=== PATIENT | male | born 1955 | race Caucasian/White ===

== ENCOUNTER → 2018-01-05 20:20 | Outpatient (CLI) | payer BC, SELFPAY ==
[2018-01-14 20:07] LABS: Ca Oxalate, Monohydrate 95 % (.)
== END ==
PROVIDERS: Family Provider Family Medicine; PCP Family Medicine; Referring Provider Urology; Visit Provider Urology
DX: N20.0 Calculus of kidney (principal)
CPT/HCPCS: 82360

== ENCOUNTER 2022-01-01 09:31 | Observation (INO) | payer BC, SELFPAY ==
[2022-01-01 09:32] VITALS: BP 167/105; PULSE 81; RESP 18; TEMP 36.6; O2SAT 98; BMI 33.6
--- NOTE | 2022-01-01 09:49 | EDS_ITS ---
HPI History of Present Illness Chief Complaint: Flank Pain Informant: patient Onset/Context/Timing Onset: Days Context: Gradual Onset Timing: Waxes and wanes Narrative Narrative: Patient presents with left flank pain and a known 8 mm stone. Patient developed flank pain 6 days ago. He was seen in the emergency room on Friday and diagnosed with an 8 mm left-sided stone. He was seen by Dr. Guillen in the office yesterday and was pain-free at that time. Surgery was scheduled for next week. Dr. Guillen received a call this morning the patient had significant pain with nausea overnight. He asked the patient to come in for evaluation and admission for further treatment. [facility] Medical History (Updated 01/01/22 @ 11:[address] Isidra Galicia MD) BPH (benign prostatic hyperplasia) DM type 2 (diabetes mellitus, type 2) Former smoker Hypercholesteremia Hypertension Kidney stones Sleep apnea Home Medications allopurinol 300 mg tablet 300 mg PO DAILY 01/01/22 [History Last Taken Unknown] glimepiride 4 mg tablet 4 mg PO BID 01/01/22 [History Last Taken Unknown] lisinopril 20 mg-hydrochlorothiazide 12.5 mg tablet 1 tab PO DAILY 01/01/22 [History Last Taken Unknown] metformin 1,000 mg tablet 1,000 mg PO BID 01/01/22 [History Last Taken Unknown] simvastatin 40 mg tablet 40 mg PO DAILY 01/01/22 [History Last Taken Unknown] tamsulosin 0.4 mg capsule (Flomax) 0.4 mg PO DAILY 01/01/22 [History Last Taken Unknown] Allergy/AdvReac Type Severity Reaction Status Date / Time No Known Allergies Allergy Verified 01/01/22 09:31 Surgical History (Updated 01/01/22 @ 09:52 by Kenisha Clemons) H/O bilateral hip replacements H/O hernia repair History of bilateral knee replacement History of cholecystectomy History of facial surgery Social History Smoking Status: Former smoker ROS ROS ED Constitutional Constitutional ED: Denies chills or fever(s) Eyes Eyes: Denies change in vision or discharge from eye(s) ENT ENT ED: Denies discharge from eye(s), rhinorrhea or sore throat Cardiovascular Cardiovascular: Denies chest pain or palpitations Respiratory/Chest Respiratory/Chest: Denies cough or dyspnea Gastrointestinal Gastrointestinal: Reports abdominal pain and nausea; Denies diarrhea or vomiting Genitourinary Genitourinary ED: Denies difficulty urinating or dysuria Musculoskeletal Musculoskeletal: Reports back pain; Denies extremity pain Integumentary Denies Abrasions or rash Neurologic Neurologic: Denies headache(s) or weakness Allergic/Immunologic Allergic/Immunologic ED: Denies lip swelling or urticaria EXAM Physical Exam Const Vital Signs: 01/01/22 09:32 01/01/22 09:48 Temperature 97.9 F Temperature Source Temporal Pulse Rate 81 Respiratory Rate 18 Respiratory Effort Normal Non-Labored Respiratory Pattern Normal Blood Pressure 167/105 H Blood Pressure Mean 125 Pulse Ox 98 Oxygen Delivery Method Room Air Positive well nourished and well developed General Appearance ED: well developed HEENT Reports normocephalic and head/scalp atraumatic Eyes PERRL and EOMs intact bilaterally Neck supple Chest Wall inspection of chest normal and palpation of chest normal Resp normal respiratory effort and clear to auscultation bilaterally Cardio regular rate and regular rhythm GI GI Narrative: Abdomen is distended but soft. No reproducible tenderness. Palpation: soft Back/Spine General Back: CVA tenderness left Extremity normal to inspection Neuro oriented x3 and no sensory deficits noted Sensorium / Orientation: alert Motor Exam: strength 5/5 throughout Psych mental status grossly normal Skin no rashes or lesions noted MDM MDM MDM Narrative Medical decision making narrative: Patient was given morphine, Toradol, Zofran, IV fluids. Lab work and urinalysis obtained. I was able to review his CT scan and Clinisync as he was seen at [facility]. There is an 8 mm calculus at the distal left ureter. Lab Data Attestation: I reviewed the patient's lab results. Labs: Laboratory Results - last 24 hr 01/01/22 01/01/22 01/01/22 09:59 09:59 10:55 WBC 11.7 H RBC 4.47 L Hgb 13.8 Hct 40.6 MCV 90.8 MCH 30.9 MCHC 34.0 RDW Std Deviation 41.2 RDW Coeff of Leah 12.4 Plt Count 252 MPV 8.9 Immature Gran % (Auto) 0.400 Neut % (Auto) 69.9 Lymph % (Auto) 19.6 [place] % (Auto) 6.9 Eos % (Auto) 2.9 Baso % (Auto) 0.3 Absolute Neuts (auto) 8.2 H Absolute Lymphs (auto) 2.28 Nucleated RBC % 0 Sodium 135 L Potassium 4.4 Chloride 102 Carbon Dioxide 27.0 Anion Gap 6 BUN 20 H Creatinine 1.40 H Estim Creat Clear Calc 57.74 Est GFR (MDRD) Af Amer 65 Est GFR (MDRD) Non-Af 54 L BUN/Creatinine Ratio 14.3 Glucose 189 H Calcium 9.3 Urine Color Yellow Urine Clarity Clear Urine pH 6.0 Ur Specific [place] 1.015 Urine Protein Negative Urine Glucose (UA) Normal Urine Ketones Negative Urine Occult Blood 25 H Urine Nitrite Negative Urine Bilirubin Negative Urine Urobilinogen 1 H Ur Leukocyte Esterase 25 H Urine RBC 0-5 SEEN Urine WBC 5-10 SEEN Ur Squamous Epith Cells 0-5 SEEN Ur Transition Epith Cell 5-10 SEEN Urine Bacteria 1+ Urine Mucus 0 SEEN Treatment and Re-Evaluation Narrative: Patient's pain is improved. Lab work reveals mild elevation of white count of 11.7. Creatinine today is 1.4. This is compared to a creatinine of 1.31 on the . Urinalysis shows 1+ bacteria with epithelial cells. I spoke with Dr. Guillen. Patient will be admitted for further treatment. Discharge Plan Triage Chief Complaint: Flank Pain ED Provider: Isidra Galicia Dx/Rx/DC Orders Clinical Impression: Kidney stone Prescriptions: No Action lisinopril-hydrochlorothiazide 20-12.5 mg Tablet 1 tab PO DAILY simvastatin 40 mg Tablet 40 mg PO DAILY tamsulosin [Flomax] 0.4 mg Capsule 0.4 mg PO DAILY metformin 1,000 mg Tablet 1,000 mg PO BID glimepiride 4 mg Tablet 4 mg PO BID allopurinol 300 mg Tablet 300 mg PO DAILY Primary Care Provider: Wei Cabello Referrals: Bladimir Ayala MD [Non-Staff] - Disposition Disposition: Acute Care Hospital [facility]
[2022-01-01] MEDS: Ketorolac 15 MG/ML Vial IV ×3 (09:55→19:57)
[2022-01-01] MEDS: Ondansetron 4 MG/2 ML Vial IV (09:55)
[2022-01-01] MEDS: 0.9% Normal Saline 1,000 ML 150 ML IV ×3 (09:56→19:57)
[2022-01-01] MEDS: Morphine 4 MG/ML Syringe IV (09:57)
[2022-01-01 10:21] LABS: Absolute Lymphocyte Count 2.28 X10^3/uL (0.83-4.51); Absolute Neutrophil Count 8.2 X10^3/uL (2.0-7.7); Basophil# 0.03 X10^3/uL; Basophil% 0.3 % (0-1); Eosinophil# 0.34 X10^3/uL; Eosinophils% 2.9 % (0-5); Hematocrit 40.6 % (40-54); Hemoglobin 13.8 g/dL (13.0-16.5); Lymphocyte # 2.28 X10^3/ul (0.83-4.51); Lymphocyte % 19.6 % (19-41); Mean Corpuscular Hgb 30.9 pg (27.0-32.0); Mean Corpuscular Volume 90.8 fL (80-94); Mean Platelet Vol. 8.9 fl (6.2-12.0); Monocyte# 0.81 X10^3/uL; Monocyte% 6.9 % (0-10); NRBC Flagged by Analyzer 0 % (0-5); Neutrophil # 8.15 X10^3/uL (2.7-7.7); Neutrophil % 69.9 % (47-70); Platelet Count 252 K/mm3 (150-450); RBC Distribution Width CV 12.4 % (11.6-14.6); RBC Distribution Width SD 41.2 fl (35.1-43.9); Red Blood Count 4.47 M/mm3 (4.6-6.2); White Blood Count 11.7 K/mm3 (4.4-11.0)
[2022-01-01 10:35] LABS: Anion Gap 6 (5-15); BUN 20 mg/dL (7-18); BUN/Creat Ratio 14.3 RATIO (10-20); Calcium,Total 9.3 mg/dL (8.5-10.1); Chloride 102 mmol/L (98-107); EST Glomerular Filtration Rate 54 mL/min (>60); Est Glom Filt Rate - Afr Amer 65 mL/min (>60); Estimated Creatinine Clearance 57.74 ml/min; Glucose 189 mg/dL (74-106); Potassium 4.4 mmol/L (3.5-5.1); Sodium Level 135 mmol/L (136-145)
[2022-01-01 11:01] LABS: Mucous, Urine 0 SEEN /hpf (<or=2+)
[2022-01-01 11:02] LABS: Color, Urine Yellow (Yellow); Glucose, Dipstick Normal (Normal); Ketone-Dipstick Negative (Negative); Leukocyte Esterase-Dipstick 25 /ul (Negative); Nitrite-Dipstick Negative (Negative); Occult Blood-Urine 25 /ul (Negative); Protein-Dipstick Negative (Negative); Specific Gravity, Urine 1.015 (1.002-1.030); Urine Bilirubin Dipstick Negative (Negative); Urine Clarity Clear (Clear); Urine Urobilinogen 1 mg/dl (Normal)
[2022-01-01 11:13] LABS: Bacteria 1+ /hpf (None Seen); Red Blood Cells-Urine 0-5 SEEN /hpf (0-5); Squamous Epithelial Cells - UA 0-5 SEEN /hpf (0-5); Transitional Epithelial - Ur 5-10 SEEN /hpf (0-5); White Blood Cells 5-10 SEEN /hpf (0-5)
--- NOTE | 2022-01-01 11:36 | NURSING ---
MED SURG OBS LEENA KIDNEY STONE
[2022-01-01 11:37] VITALS: BP 121/91; PULSE 69; RESP 18; TEMP 36.7; O2SAT 97
--- NOTE | 2022-01-01 11:52 | NURSING ---
Floor to call for orders from Dr. Morse on admission.
--- NOTE | 2022-01-01 12:41 | HP.PCM_ITS ---
HPI - General General Date of Admission: 01/01/22 HPI Narrative ISMA CAGLE, is a 66 M who presents to the hospital with left severe flank pain he had severe pain last night called the office and was wondering what to do because he is having uncontrolled pain so recommended go to the emergency room for pain control we can bring him into the hospital for pain control and probably a stent placement tomorrow in surgery. [facility] Medical History BPH (benign prostatic hyperplasia) DM type 2 (diabetes mellitus, type 2) Former smoker Hypercholesteremia Hypertension Kidney stones Sleep apnea Home Medications allopurinol 300 mg tablet 300 mg PO DAILY 01/01/22 [History Last Taken Unknown] glimepiride 4 mg tablet 4 mg PO BID 01/01/22 [History Last Taken Unknown] lisinopril 20 mg-hydrochlorothiazide 12.5 mg tablet 1 tab PO DAILY 01/01/22 [History Last Taken Unknown] metformin 1,000 mg tablet 1,000 mg PO BID 01/01/22 [History Last Taken Unknown] simvastatin 40 mg tablet 40 mg PO DAILY 01/01/22 [History Last Taken Unknown] tamsulosin 0.4 mg capsule (Flomax) 0.4 mg PO DAILY 01/01/22 [History Last Taken Unknown] Allergy/AdvReac Type Severity Reaction Status Date / Time No Known Allergies Allergy Verified 01/01/22 09:31 Surgical History H/O bilateral hip replacements H/O hernia repair History of bilateral knee replacement History of cholecystectomy History of facial surgery Social History Smoking Status: Former smoker ROS Constitutional Constitutional: Denies chills, fever(s) or malaise Eyes Eyes: Denies blurry vision or change in vision ENT HEENT: Reports none Cardiovascular Cardiovascular: Denies chest pain or palpitations Respiratory/Chest Respiratory/Chest: Denies cough or shortness of breath with exertion Gastrointestinal Gastrointestinal: Denies abdominal pain, constipation or diarrhea Musculoskeletal Musculoskeletal: Denies back pain, joint stiffness or joint swelling Integumentary Integumentary: Denies dry skin, jaundice, lesions or rash Neurologic Neurologic: Denies confusion, syncope or weakness Psychiatric Psychiatric: Reports none; Denies anxiety or depression Endocrine Endocrinology: Denies excessive sweating, fatigue or flushing Hematologic/Lymphatic Hematologic/Lymphatic: Denies anemia, easy bleeding or easy bruising Vital Signs Vital Signs Vital Signs: 01/01/22 09:32 01/01/22 09:48 01/01/22 11:37 Temperature 97.9 F 98.0 F Temperature Source Temporal Oral Pulse Rate 81 69 Respiratory Rate 18 18 Respiratory Effort Normal Non-Labored Respiratory Pattern Normal Blood Pressure 167/105 H 121/91 H Blood Pressure Mean 125 101 Pulse Ox 98 97 Oxygen Delivery Method Room Air Room Air Weight Weight: 112.6 kg Body Mass Index (BMI) 33.6 Physical Exam Const alert and oriented x3 General Appearance: cooperative HEENT normocephalic, head/scalp atraumatic, EAC's normal and TM's normal bilaterally Eyes PERRL and EOMs intact bilaterally Pupil: sluggish Neck no lymphadenopathy, supple and no JVD General: trachea midline Lymph Lymphatic: no lymphadenopathy noted, lymphedema and lymphadenopathy Resp normal respiratory effort, normal air movement and clear to auscultation bilaterally Cardio regular rate, regular rhythm and peripheral pulses 2+ throughout GI soft to palpation, non-tender and non-distended Extremity normal capillary refill and no clubbing, cyanosis or edema General Extremity: no tenderness to palpation of joints or extremities Skin no rashes or lesions noted General Skin Exam: turgor normal Lesions: no lesions Rashes: no rashes Neuro CN's II-XII intact bilaterally Speech: speech normal Motor Exam: strength 5/5 throughout; Negative for general weakness Psych thought process normal, cooperative and affect normal Appearance: appropriate Results Medical Records Data Attestation: I reviewed the patient's medical records Lab / Micro Data Attestation: I reviewed the patient's lab results. Result Diagrams: 01/01/22 09:59 01/01/22 09:59 Labs: Laboratory Results - last 24 hr 01/01/22 09:59: WBC 11.7 H, RBC 4.47 L, Hgb 13.8, Hct 40.6, MCV 90.8, MCH 30.9, MCHC 34.0, RDW Std Deviation 41.2, RDW Coeff of Leah 12.4, Plt Count 252, MPV 8.9, Immature Gran % (Auto) 0.400, Neut % (Auto) 69.9, Lymph % (Auto) 19.6, [place] % (Auto) 6.9, Eos % (Auto) 2.9, Baso % (Auto) 0.3, Absolute Neuts (auto) 8.2 H, Absolute Lymphs (auto) 2.28, Nucleated RBC % 0 01/01/22 09:59: Sodium 135 L, Potassium 4.4, Chloride 102, Carbon Dioxide 27.0, Anion Gap 6, BUN 20 H, Creatinine 1.40 H, Estim Creat Clear Calc 57.74, Est GFR (MDRD) Af Amer 65, Est GFR (MDRD) Non-Af 54 L, BUN/Creatinine Ratio 14.3, Glucose 189 H, Calcium 9.3 01/01/22 10:55: Urine Color Yellow, Urine Clarity Clear, Urine pH 6.0, Ur Specific [place] 1.015, Urine Protein Negative, Urine Glucose (UA) Normal, Urine Ketones Negative, Urine Occult Blood 25 H, Urine Nitrite Negative, Urine Bilirubin Negative, Urine Urobilinogen 1 H, Ur Leukocyte Esterase 25 H, Urine RBC 0-5 SEEN, Urine WBC 5-10 SEEN, Ur Squamous Epith Cells 0-5 SEEN, Ur Transition Epith Cell 5-10 SEEN, Urine Bacteria 1+, Urine Mucus 0 SEEN ABG Data Attestation: I personally reviewed and interpreted this ABG as follows: Assessment & Plan Assessment/Plan (1) Left ureteral calculus: PLAN: N.p.o. at midnight plan for cystoscopy stent placement tomorrow, left side we will check a KUB
[2022-01-01 12:42] VITALS: BMI 33.5
[2022-01-01 12:54] VITALS: BP 134/90; PULSE 72; RESP 18; TEMP 36.6; O2SAT 98
[2022-01-01] MEDS: Cefazolin 1 GM/50 ML BAG IV ×2 (13:57→21:51)
[2022-01-01] MEDS: Tamsulosin HCl 0.4 MG Capsule PO (17:07)
[2022-01-01] MEDS: Glimepiride 4 MG Tablet PO (17:07)
[2022-01-01] MEDS: metFORMIN HCl 1,000 MG Tablet 1000 MG PO (17:07)
[2022-01-01 17:08] VITALS: BP 142/90; PULSE 61; RESP 18; TEMP 36.7; O2SAT 96
[2022-01-01 19:52] VITALS: BP 161/100; PULSE 66; RESP 18; TEMP 37.1; O2SAT 97
[2022-01-01] MEDS: Docusate Sodium 100 MG Capsule 200 MG PO (21:51)
[2022-01-01] MEDS: Atorvastatin Calcium 20 MG Tablet PO (21:51)
[2022-01-02] VITALS (7 sets, daily range): BP systolic 130–154; BP diastolic 78–94; PULSE 68–78; RESP 15–18; TEMP 36.7–37.6; O2SAT 91–97; BMI 33.5
[2022-01-02] MEDS: 0.9% Normal Saline 1,000 ML 150 ML IV ×3 (02:18→11:57)
[2022-01-02] MEDS: Ketorolac 15 MG/ML Vial IV ×2 (02:24→08:41)
[2022-01-02 05:54] LABS: Hematocrit 35.8 % (40-54); Hemoglobin 12.4 g/dL (13.0-16.5); Mean Corp Hgb Conc 34.6 g/dL (32-36); Mean Corpuscular Hgb 31.4 pg (27.0-32.0); Mean Corpuscular Volume 90.6 fL (80-94); Mean Platelet Vol. 8.9 fl (6.2-12.0); Platelet Count 229 K/mm3 (150-450); RBC Distribution Width CV 12.3 % (11.6-14.6); RBC Distribution Width SD 40.9 fl (35.1-43.9); Red Blood Count 3.95 M/mm3 (4.6-6.2); White Blood Count 9.9 K/mm3 (4.4-11.0)
--- NOTE | 2022-01-02 06:00 | EKG12_ITS ---
Test Reason : AM EKG Blood Pressure : / mmHG Vent. Rate : 077 BPM Atrial Rate : 077 BPM P-R Int : 168 ms QRS Dur : 078 ms QT Int : 370 ms P-R-T Axes : 038 047 007 degrees QTc Int : 418 ms Sinus rhythm with Premature supraventricular complexes Otherwise normal ECG When compared with ECG of 21-AUG-2006 14:04, Premature supraventricular complexes are now Present Confirmed by JULIAN REINOSO, NORMA ([id number]), features editor ANGELINA NAGY ([id number]) on 01/07/2022 2:21:24 PM Referred By: Confirmed By:NORMA JORDAN MD
[2022-01-02] MEDS: Cefazolin 1 GM/50 ML BAG IV (06:09)
[2022-01-02 06:39] LABS: Anion Gap 6 (5-15); BUN 21 mg/dL (7-18); BUN/Creat Ratio 13.2 RATIO (10-20); Calcium,Total 8.2 mg/dL (8.5-10.1); Chloride 110 mmol/L (98-107); Creatinine, Serum 1.59 mg/dL (0.70-1.30); EST Glomerular Filtration Rate 47 mL/min (>60); Est Glom Filt Rate - Afr Amer 56 mL/min (>60); Estimated Creatinine Clearance 50.84 ml/min; Glucose 106 mg/dL (74-106); Potassium 4.5 mmol/L (3.5-5.1); Sodium Level 142 mmol/L (136-145)
[2022-01-02 08:53] LABS: Hemoglobin A1c 7.2 % (3.8-5.6)
--- NOTE | 2022-01-02 10:34 | NURSING ---
pt to surgery
[2022-01-02 11:05] LABS: Bedside Glucose 142 mg/dL (74-106)
--- NOTE | 2022-01-02 11:10 | OP.PCM_ITS ---
Report of Operation Date of Procedure: 01/02/22 Pre-Operative Diagnosis: Left obstructing ureteral calculi Post-Operative Diagnosis: Same Surgery/Procedure Performed:: Cystoscopy left stent placement left retrograde pyelogram interpretation fluoroscopic images. Description of Surgical Findings:: Patient was taken back to the operating room after induction of general anesthesia, the patient was placed in dorsolithotomy position. The urethra and genitals were prepped and draped in usual sterile fashion. Using a 21 Portuguese rigid cystourethroscope the entire length of the urethra was normal then went into the bladder. Identified the trigone the left and right ureteral orifice. I then cannulated the Left orifice and advanced a wire up into the kidney. I then had return of pretty foul looking urine from the left kidney so I decided not to proceed with any attempted ureteroscopy or laser of the stone for risk of sepsis. Dediced to place a stent at this point. I then backloaded a 5 Portuguese open ended catheter over the wire and injected contrast to delineate the anatomy. After the retrograde was performed I then used fluoroscopic images and guidance to advanced a wire up into the kidney and over the 0.038 glidewire I advanced a 6 Portuguese by 26 cm double pigtail stent. I then pulled the 0.038 Glidewire off and the stent coiled in the kidney bladder good position. The bladder was then drained. We confirmed the position of the stent by fluoroscopy. Patient anesthetic was reversed and was taken back to the PACU in good condition. Surgeon: Willy Guillen Type of Anesthesia: General Drains: stent left Admit VTE Documentation VTE Present on Admission: No VTE Mechan Device Prophylaxis: SCD's VTE Pharm Prophylaxis ordered?: No
--- NOTE | 2022-01-02 11:12 | DCINST_ITS ---
Discharge Instructions Diet Discharge Diet: No restrictions, Light diet - advance as tolerated and Soft diet Activity Discharge Activity: Return to Normal Activity Follow Up Care Please Follow Up With: Willy Guillen MD When: keep appt for laser stone Test Results: Test results from this visit will be discussed in further detail at your follow- up appointment, if applicable. Discharge Plan Admission Admit Date/Time: 01/01/22 12:45 Primary Reason for Your Visit: kidney stone and infection Attending Provider: Willy Guillen Primary Care Provider: Wei Cabello Discharge Orders/Prescriptions Prescriptions: New ciprofloxacin HCl [Cipro] 500 mg tablet 500 mg PO BID Qty: 14 0RF oxycodone-acetaminophen 5-325 mg tablet 1 tab PO Q4H PRN (Reason: pain) 7 Days Qty: 14 0RF Continued lisinopril-hydrochlorothiazide 20-12.5 mg Tablet 1 tab PO DAILY simvastatin 40 mg Tablet 40 mg PO DAILY tamsulosin [Flomax] 0.4 mg Capsule 0.4 mg PO DAILY metformin 1,000 mg Tablet 1,000 mg PO BID glimepiride 4 mg Tablet 4 mg PO BID allopurinol 300 mg Tablet 300 mg PO DAILY Referrals / Follow Up: Wei Cabello MD [Primary Care Provider] - Bladimir Ayala MD [Non-Staff] - Willy Guillen MD [Med Staff - Active Staff] - Disposition Discharge Orders: Discharge Patient (Routine); Ordered 01/02/22 Ordered By: Dr. Willy Guillen
--- NOTE | 2022-01-02 11:41 | PHA.DC.MR ---
Pharmacy Service has performed discharge medication reconciliation for this patient. The patient's discharge medication list was reviewed for discrepancies and discrepancies were resolved. Pt not back from surgery when counseling attempted. Home Medications allopurinol 300 mg tablet 300 mg PO DAILY gout 01/01/22 glimepiride 4 mg tablet 4 mg PO BID Check with primary doctor 01/01/22 lisinopril 20 mg-hydrochlorothiazide 12.5 mg tablet 1 tab PO DAILY bp 01/01/22 metformin 1,000 mg tablet 1,000 mg PO BID Check with primary doctor 01/01/22 simvastatin 40 mg tablet 40 mg PO DAILY Check with primary doctor 01/01/22 tamsulosin 0.4 mg capsule (Flomax) 0.4 mg PO DAILY Check with primary doctor 01/01/22 ciprofloxacin HCl 500 mg tablet (Cipro) 500 mg PO BID #14 tabs 01/02/22 oxycodone-acetaminophen 5 mg-325 mg tablet 1 tab PO Q4H PRN pain 7 days #14 tabs 01/02/22
== END 2022-01-02 13:00 | disposition home or self-care (01) ==
LOC: ED 11:34 → MS3 12:57
PROVIDERS: Anesthesiology; Admitting Provider Urology; Emergency Provider Emergency Medicine; PCP Family Medicine; Visit Provider Urology
PROC: (CPT 52332; principal; 2022-01-02 11:50)
DX: N20.1 Calculus of ureter (principal); E11.9 Type 2 diabetes mellitus without complications; Z87.891 Personal history of nicotine dependence; E78.00 Pure hypercholesterolemia, unspecified; I10 Essential (primary) hypertension; N40.0 Benign prostatic hyperplasia without lower urinary tract symptoms; Z79.899 Other long term (current) drug therapy; Z79.84 Long term (current) use of oral hypoglycemic drugs
CPT/HCPCS: 52332; 00910; 36415; 80048; 81001; 82962; 83036; 85025; 85027; 93005; 96361; 96365; 96366; 96375; 96376; 99218; 99284; J7030; A4216; C1769; C2617; G0378; J2405

== ENCOUNTER → 2025-01-20 | Outpatient (CLI) | payer MEDICARE, SELFPAY ==
[2025-01-20 09:32] LABS: PSA,Total- Diagnostic 7.60 ng/mL (0.00-4.00)
== END | disposition home or self-care (01) ==
LOC: LAB 08:30
PROVIDERS: PCP Physician Assistant; Referring Provider Urology; Visit Provider Urology
DX: R97.20 Elevated prostate specific antigen [PSA] (principal)
CPT/HCPCS: 36415; 84153

== ENCOUNTER → 2025-02-03 | Outpatient (CLI) | payer MEDICARE, SELFPAY ==
--- NOTE | 2025-02-03 10:10 | RAD_ITS ---
PROCEDURE: ORBITS FOR FOREIGN BODY 02/03/2025 REASON FOR EXAM: HX OR METAL REMOVAL TO EYES TECHNIQUE: Procedure Code: RADORBFB2. Modality: DX Procedure: ORBITS FOR FOREIGN BODY FINDINGS: No acute fracture or dislocation is identified. Numerous small side plates and small screws are noted throughout the facial bones including the orbits, as well as radiopaque mesh along the floors of the bilateral orbits. Dental amalgam is present. No other radiopaque foreign body is identified. RAD/Orbits for Foreign Body IMPRESSION: As above. Reading Location: [id number]
--- NOTE | 2025-02-03 10:16 | MRI_ITS ---
EXAM: PELVIS W/WO CONTRAST 02/03/2025 CLINICAL HISTORY: ELEVATED PSA LEVELS. TECHNIQUE: Procedure Code: [id number] Modality: MR Procedure: PELVIS W/WO CONTRAST Multiplanar and multisequence images were obtained without and with intravenous gadolinium contrast. CONTRAST: Clariscan VOLUME: 20 mL COMPARISON: None FINDINGS: Image quality:Susceptibility artifact from bilateral hip arthroplasties limits the diffusion-weighted images and postcontrast evaluation of the transitional zone and base of the prostate. PSA:7.6ng/mL Prostate size: 5.4 x 6.8 x 5.5cms Prostate volume: 105.7mL PSA density:0.072 ng/ml??? Prostate Transition zone: PI-RADS 2 findings. There has benign prostatic hyperplasia. No suspicious abnormality seen on T2 weighted sequences. *Lesion none: *T2 score: 2; mostly encapsulated nodule or a homogeneous circumscribed nodule without encapsulation, or a homogeneous mildly hypointense area between nodules. *DWI score: 0. *DCE: N/A. *Overall PI-RADS: PI-RADS 2. *Extracapsular extension:No gross extracapsular extension. Peripheral Zone: Background changes of likely prostatitis (PI-RADS 2). *Lesion 1: 15 x 9 mm lesion in the posterior left transitional zone midgland (image 22 series 12 and postcontrast images number 05/06/2022 series 13.8). *T2 score: 4; circumscribed, homogeneous, moderate hypointensity, and <1.5 cm. *DWI score: Nondiagnostic. *DCE: Positive. *Overall PI-RADS: PI-RADS 4. *Extracapsular extension:No gross extracapsular extension. Neurovascular bundles: Unremarkable. Seminal vesicles: Unremarkable. Bladder: Underdistended and suboptimally evaluated, grossly unremarkable. Lymph nodes: Unremarkable. Bones: No destructive or frankly suspicious bony lesions identified on nondedicated evaluation. Other: None. MRI/Pelvis W/WO Contrast IMPRESSION: Indeterminate 15 mm lesion in the left transitional zone midgland demonstrating enhancement and suspicious T2 features. PI_RADS CATEGORY X. diffusion weighted imaging through the prostate gland was i nadequate due to susceptibility from bilateral hip arthroplasties. Benign prostatic hyperplasia. Reading Location: [id number]
== END | disposition home or self-care (01) ==
LOC: OPMRI 10:08
PROVIDERS: PCP Physician Assistant; Referring Provider Urology; Visit Provider Urology
DX: R97.20 Elevated prostate specific antigen [PSA] (principal)
CPT/HCPCS: 70030; 72197; A9575; A4216